=== PATIENT | male | born 1960 | race Caucasian/White ===

== ENCOUNTER 2024-04-07 12:15 | Emergency (ER) | payer MEDICAID, SELFPAY ==
[2024-04-07 12:17] VITALS: BMI 19.3
--- NOTE | 2024-04-07 12:44 | XR_ITS ---
Examination: CT brain head without contrast. 2-D sagittal coronal reconstructions Date and time of exam:April 07, 2024 1252 hrs. Indications: Onset generalized headaches today CTDI: vol (mGy):48.9 DLP: (mGycm):1012 Technique: Multiple CT axial sections of the brain have been obtained, 5 mm slice thickness. Contrast has not been administered. 2-D sagittal, coronal reconstructions have been obtained Low dose protocols were performed. One or more of the following dose reduction techniques were used; automated exposure control, adjustment of the mA and/or KV according to patient size, use of iterative reconstruction technique. Findings: No significant ventricular enlargement. 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 No mass effect or midline shift Basal cisterns are not remarkable. Fourth ventricle is midline. Cranial vault intact. Mild chronic ethmoid sinusitis Impression: Negative for acute hemorrhage, mass effect or midline shift Clinical correlation advised and follow-up accordingly
--- NOTE | 2024-04-07 12:44 | XR_ITS ---
Examination: CT abdomen and pelvis without contrast. Coronal 3-D reconstructions. Sagittal 2-D reconstructions. Date and time of exam:April 07, 2024 1244 hrs. Indications: Intermittent abdominal pain one month CTDI: vol (mGy): 6 DLP: (mGycm): 303 Technique: Axial images of the abdomen have been obtained, 3 mm slice thickness Intravenous contrast material has not been administered. Low dose protocols were performed. One or more of the following dose reduction techniques were used; automated exposure control, adjustment of the mA and/or KV according to patient size, use of iterative reconstruction technique. Findings: No focal liver or splenic lesions No gallstones No pancreatic or adrenal mass Significant bilateral hydronephrosis No bowel obstruction Normal appendix Prostatomegaly 5 cm Trabeculation of the urinary bladder with wall thickening, small bladder diverticulum on the right Distended urinary bladder Abundant stool in the rectum with rectal wall thickening which is prominent, clinical correlation advised Moderate degenerative disc disease L2-L3 Impression: Significant hydronephrosis, likely secondary to urinary tract obstruction from the patient's enlarged prostate Distended urinary bladder with wall thickening of the bladder, trabeculation, also consistent with lower urinary tract outflow obstruction secondary to the patient's enlarged prostate
--- NOTE | 2024-04-07 12:44 | PD.EDRME ---
Rapid Medical Screening Exam RME Arrival date/time: 04/07/24 12:15 63-year-old male presents emergency department reports of abdominal pain and headache Chief Complaint: Abdominal Pain
[2024-04-07 12:50] VITALS: BP 165/94; PULSE 95; RESP 18; TEMP 37.2; O2SAT 100; BMI 19.3
[2024-04-07 13:13] LABS: Basophils % (Auto) 0 % (0-2.5); Eosinophils # (Auto) 0.1 Thou/mm3 (0.0-0.5); Eosinophils % (Auto) 2 % (0-10); Hematocrit 33.9 % (41.0-53.0); Hemoglobin 11.4 g/dL (13.5-16.0); Immature Granulocytes % (Auto) 0 % (0-0); Immature Granulocytes Auto 0.01 Thou/mm3 (0.00-0.00); Lymphocytes # (Auto) 0.7 Thou/mm3 (1.0-4.8); Lymphocytes % (Auto) 14 % (10-50); Mean Corpuscular HGB Conc 33.6 g/dl (31.0-37.0); Mean Corpuscular Hemoglobin 30.1 pg (25.0-35.0); Mean Corpuscular Volume 89 fL (80-100); Monocytes # (Auto) 0.7 Thou/mm3 (0.0-0.8); Monocytes % (Auto) 15 % (0-12); Neutrophils # (Auto) 3.3 Thou/mm3 (1.8-7.7); Neutrophils % (Auto) 69 % (37-80); Nucleated Red Blood Cell % 0 /100 WBC (0); Platelet Count 256 Thou/mm3 (140-440); RDW Standard Deviation 40.5 fL (35.1-43.9); Red Blood Count 3.79 Miln/mm3 (4.50-5.90); White Blood Count 4.8 Thou/mm3 (3.8-10.6)
[2024-04-07 13:28] LABS: Collection Type, Urine Clean Catch; Squamous Epithelial Cell,Urine 0 /hpf (0-5)
[2024-04-07 13:38] LABS: Alanine Aminotransferase 9 U/L (10-49); Albumin, Serum 4.8 gm/dL (3.4-4.8); Albumin/Globulin Ratio 1.5 (1.2-2.2); Alkaline Phosphatase 105 U/L (46-116); Anion Gap 8 (7-16); Aspartate Amino Transferase 13 U/L (0-34); BUN/Creatinine Ratio 9 Ratio (12-20); Bilirubin,Total 0.3 mg/dL (0.3-1.2); Blood Urea Nitrogen 20 mg/dL (9-23); Calcium 9.3 mg/dL (8.3-10.6); Calcium (Corrected) 9.3 mg/dL (8.5-10.1); Carbon Dioxide 29.5 mMol/L (20.0-31.0); Chloride 99 mMol/L (98-107); Creatinine (Component) 2.3 mg/dL (0.6-1.3); Estimated Creatinine Clearance 28.8 mL/min (>60); Globulin 3.1 gm/dL (2.3-3.5); Glucose 123 mg/dL (74-106); Lipase 49 U/L (12-53); Osmolality,Calculated 275 (275-295); Sodium 136 mMol/L (136-145); Total Protein 7.9 gm/dL (5.7-8.2); eGFR 31 See Note
[2024-04-07 14:18] LABS: Bacteria,Urine 1+; Bilirubin,Urine Negative (Negative); Blood,Urine 2+ (Negative); Clarity,Urine Turbid (Clear/Hazy); Color,Urine Lt-Yellow (Lt Yel-Yel); Glucose, Urine Negative (Negative); Ketones,Urine Negative (Negative); Leukocyte Esterase,Urine Positive (Negative); Nitrite,Urine Negative (Negative); PH,Urine 6.5 (5.0-7.0); Protein,Urine Trace (Neg - Trace); RBC,Urine 26 /hpf (0-3); Specific Gravity,Urine 1.008 (1.001-1.035); Urobilinogen,Urine Negative mg/dL (0.0-1.0); WBC,Urine 219 /hpf (0-5)
[2024-04-07 14:19] LABS: Culture Indicated,Urine Yes
[2024-04-07] MEDS: oxyCODONE/APAP 5/325 TABLET 1 TAB PO (15:43)
--- NOTE | 2024-04-07 16:40 | PC.NURSE ---
called from lobby and no answer
== END 2024-04-07 16:52 | disposition left against medical advice (07) ==
LOC: SERX 13:22
PROVIDERS: Nurse Practitioner Primary Care; Emergency Provider Emergency Medicine; PCP Family Medicine
DX: R10.9 Unspecified abdominal pain (principal); R51.9 Headache, unspecified; Z53.29 Procedure and treatment not carried out because of patient's decision for other reasons
CPT/HCPCS: 36415; 70450; 74176; 80053; 81001; 83690; 85025; 87086; 99281; A9270